=== PATIENT | female | born 1995 | race Caucasian/White ===

== ENCOUNTER 2016-12-05 08:34 | Day surgery (SDC) | payer BC ==
[2016-12-02 18:08] LABS: BASOPHILS 1.4 %; BASOPHILS ABSOLUTE 0.09 10/3/uL (0.0-0.16); EOSINOPHILS 2.3 %; EOSINOPHILS ABSOLUTE 0.15 10/3/uL (0.0-0.53); HEMATOCRIT 44.2 % (36.0-48.0); HEMOGLOBIN 14.3 g/dL (12.0-16.0); IMMATURE GRANULOCYTES 0.2 %; IMMATURE GRANULOCYTES ABSOLUTE 0.01 10/3/uL (0.0-0.11); LYMPHOCYTES 39.3 %; LYMPHOCYTES ABSOLUTE 2.58 10/3/uL (0.67-4.30); MEAN CORPUS HGB CONC 32.4 g/dL (32.0-36.0); MEAN CORPUSCULAR HEMOGLOB 29.8 pg (26.0-34.0); MEAN CORPUSCULAR VOLUME 92.1 fL (80-100); MEAN PLATELET VOLUME 12.2 fL (9.2-13.0); MONOCYTES ABSOLUTE 0.72 10/3/uL (0.21-1.20); NEUTROPHILS 45.8 %; NEUTROPHILS ABSOLUTE 3.02 10/3/uL (2.02-8.40); PLATELET COUNT 264 10/3/uL (150-400); RBC DISTRIBUTION WIDTH 13.9 % (12.0-16.0); WHITE BLOOD CELLS 6.6 10/3/uL (4.5-10.5)
[2016-12-02 18:10] LABS: A/G RATIO 1.4 (0.7-1.9); ALBUMIN 4.2 G/DL (3.5-5.0); ALKALINE PHOSPHATASE 60 U/L (45-117); BUN (BLOOD UREA NITROGEN) 12 MG/DL (6-23); CHLORIDE, SERUM 110 MMOL/L (96-112); CO2 (CARBON DIOXIDE) 25 MMOL/L (24-34); CREATININE 0.72 MG/DL (0.55-1.02); GFR AFRICAN AMERICAN 139 ML/MIN (>=60); GFR NON AFRICAN AMERICAN 120 ML/MIN (>=60); GLOBULIN 2.9 G/DL (2.5-4.1); GLUCOSE, SERUM 92 MG/DL (60-99); MANUAL DIFF NO %; POTASSIUM, SERUM 4.3 MMOL/L (3.5-5.3); SGOT(AST) 8 U/L (5-40); SGPT(ALT) 16 U/L (5-65); SODIUM, SERUM 143 MMOL/L (135-148); TOTAL BILIRUBIN 0.9 MG/DL (0-1.2); TOTAL PROTEIN 7.1 G/DL (6.0-8.5)
[2016-12-02 18:26] LABS: INTERNATIONAL NORMAL RATI 1.1 UNITS (-); PROTIME (NOT ORD) 14.3 SEC (12.0-14.5)
[2016-12-02 18:27] LABS: PARTIAL THROMBO TIME 32.2 SEC (22.5-37.2)
--- NOTE | ~2016-12-05 | OP ---
Record Of Operation [facility] [address] [place]. [address] NAME: MORA NO : 95 STATUS : [facility]#: [id number] AGE: 21 ADM/REG DATE : 12/05/16 MR#: [id number] REPORT SERV DATE: 12/05/16 DICTATED BY: MARYBETH UREÑA III DATE: 12/05/16 REPORT STATUS : Draft TRANSCRIBED BY: MODL DATE: 12/05/16 DATE OF PROCEDURE: 12/05/2016 PREOPERATIVE DIAGNOSIS: Symptomatic cholelithiasis, cholecystitis. POSTOPERATIVE DIAGNOSIS: Symptomatic cholelithiasis, cholecystitis. PATHOLOGY: Multiple cholesterol stones filling the entire lumen of the gallbladder, with normal intraoperative cholangiogram, normal grossly appearing liver, with a 3 mm cystic duct, and the common duct noted to be 7-8 mm external diameter. The patient's uterus was slightly hyperemic, and her tubes and ovaries were unremarkable. She had a normal appearing appendix that was fairly large, but clearly nonacute. PROCEDURE IN DETAIL: The patient had a laparoscopic cholecystectomy with intraoperative cholangiography followed by a right costal margin costal block using 30 mL of 0.5% Marcaine with epinephrine to block the sixth and seventh intercostal nerves for postop pain supplementation. SURGEONS: Marybeth Ureña M.D. VANSTONE MACHINE OPERATOR: Andreina Ureña RN, [facility]. SPECIMEN REMOVED: The gallbladder with stones and the node of Calot which was removed EN bloc. ESTIMATED BLOOD LOSS: 5 mL. COMPLICATIONS: There were no complications. PROCEDURE IN DETAIL: Time-out was called in full agreement of all personnel involved at the patient's procedure. Allergies and medications were in order. With no distention, the procedure was proceeded. The patient was prepped and draped in routine fashion. After adequate general anesthesia, the area of the abdomen approached through a small infraumbilical transverse incision beneath a fairly splayed out umbilicus which had been stretched presumably due to child carrying. The open trocar-placement technique was utilized grasping the peritoneal cavity, and stretching it and placing a 5 x 12 mm balloon port in the peritoneal cavity under direct visualization. The balloon was inflated, and the abdominal cavity insufflated to 15 mmHg pressure with carbon dioxide gas. The abdomen was then inspected and an 11 mm trocar placed through the falciform ligament under video observation. One 5 mm trocar was placed in the right costal margin at the mid axillary line level also under video observation. Internal exam was performed showing findings as above of normal liver, normal stomach which Record Of Operation [facility] [address] [facility] [place]. [address] NAME: MORA NO : 95 STATUS : [facility] PAT#: [id number] AGE: 21 ADM/REG DATE : 12/05/16 MR#: [id number] REPORT SERV DATE: 12/05/16 DICTATED BY: MARYBETH UREÑA III DATE: 12/05/16 REPORT STATUS : Draft TRANSCRIBED BY: MODL DATE: 12/05/16 was gaseously distended requiring an OG tube to decompress it. The colon was unremarkable. Small bowel showed no gross abnormalities. The appendix was noted to be nonacute, although fairly large in size, length, and diameter. The cecum was unremarkable. Tubes, ovaries, and uterus were inspected, and the uterus was somewhat hyperemic with some scarring on it. Otherwise, no pathologic significance was seen. The gallbladder was then grasped and retracted superiorly and anteriorly, and dissection carried out removing adhesions from the infundibulum of the gallbladder and the duodenum with sharp dissection avoiding cautery in this area. The gallbladder was pulled up and the cystic duct identified and skeletonized, and the common duct noted to be pulled up as well visualizing the junction of the cystic duct and common duct. The cystic duct was skeletonized and controlled on the infundibular side with titanium clips. Percutaneously introduced Arrow catheter was then placed through a small incision in the side of the cystic duct and threaded in at about 1 cm and held in place with a partially collapsed titanium clip. Real-time C-arm intraoperative cholangiography was then obtained using 50% Hypaque or Omnipaque solution with good visualization of the common duct with good flow into the duodenum and good filling of hepatic radicals without impedance to flow or filling defects. The cystic duct stump was adequate length for slippage. After this was done, the partially collapsed clip and Arrow catheter were removed, and three titanium clips were placed on the cystic duct stump prior to its complete transection. Careful dissection in the area of the cystic artery was then carried out and two branches of the cystic artery identified clearly coming up on to the gallbladder, and these were skeletonized and controlled with titanium clips. Cautery current was then used for retrograde dissection of the gallbladder with minimal bleeding encountered. The retrograde dissection was carried out in this very distended-elongated gallbladder completing the dissection and inspecting the bed with good hemostatic control completed. After this was done, the gallbladder was brought through the infraumbilical incision and brought up through the incision without difficulty. Carefully bring up through this incision with no leakage or contamination. The gallbladder was opened on the back table showing it to be full of cholesterol stones varying in size from 1 mm to 1 cm. The gallbladder fossa was irrigated and reinspected and then, upon establishment of good hemostatic control, the trocars were all removed under video observation. Two larger trocars were closed at the fascial level with [id number] sutures of 0 Vicryl. The subcutaneous tissues were all irrigated and closed with interrupted 3-0 Vicryl, and the skin closed with Dermabond. Band-Aids were applied. The right costal margin block was then performed as described earlier using 30 mL of 0.5% Marcaine with epinephrine to block the sixth and seventh intercostal nerves. The procedure was then concluded and the patient sent to the post anesthesia care unit in stable condition. Record Of Operation [facility] [address] [place]. [address] NAME: MORA NO : 95 STATUS : [facility]#: [id number] AGE: 21 ADM/REG DATE : 12/05/16 MR#: [id number] REPORT SERV DATE: 12/05/16 DICTATED BY: MARYBETH UREÑA III DATE: 12/05/16 REPORT STATUS : Draft TRANSCRIBED BY: HERMINIO DATE: 12/05/16 REJI/HERMINIO Marybeth Ureña III, M.D. / [id number] CC: Salma Sahni III, M.D.
--- NOTE | ~2016-12-05 | HP ---
History And Physical [address] [place]. [address] NAME: MORA NO : 95 STATUS : [facility] PAT#: [id number] AGE: 21 ADM/REG DATE : MR#: [id number] REPORT SERV DATE: 11/30/16 DICTATED BY: MARYBETH UREÑA III DATE: 11/30/16 REPORT STATUS : Draft TRANSCRIBED BY: MODLoni DATE: 11/30/16 DATE OF ADMISSION: 12/05/2016 DATE OF ADMISSION AND SURGERY: 12/05/2016, 10:00 a.m. HISTORY OF PRESENT ILLNESS: The patient is a 21-year-old, female, with known gallbladder stones since 2014, but recently with more nausea, vomiting, and right upper quadrant abdominal pain associated with any food intake. She has had a couple of pounds of weight loss. She is 5 months from her first child and had some difficulties even losing weight during the latter trimester of her . She had workup to Dr. Anderson's office via Desirae Silva PA-C. The patient's workup was consistent with an ultrasound that was with a gallbladder filled with stones and normal-sized common bile duct at 0.5 cm. There was no gallbladder wall thickening or pericholecystic fluid. There were no focal liver lesions noted. The patient also underwent a HIDA scan on the same day that showed a 0 percentage ejection fraction with nonvisualization of the gallbladder at 0400 hours consistent with cystic duct obstruction. PAST MEDICAL HISTORY: Completely negative. She has had no previous hospitalizations other than for her childbirth, and she is only on ranitidine as her only medication at this time. ALLERGIES: SHE HAS NO KNOWN LATEX ALLERGIES. SOCIAL HISTORY: She is single. Never uses alcohol, tobacco, or drugs. 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 FAMILY HISTORY: Positive for liver failure in her father. Mother is positive for hepatitis C. The patient's child is a 5-month-old boy in good condition. REVIEW OF SYSTEMS: Consistent with mostly symptoms related to present illness with nausea, vomiting, some heartburn. Apparently, she had a colonoscopy in 2012, to evaluate some anemia that she had. She has had some chronic anemia which was said to be iron deficiency. She is presently taking control pills since her childbirth. Her last normal menstrual period was 11/13/2016. Her last Pap smear was 08/11/2016. Remainder of the review of systems is negative. PHYSICAL EXAMINATION: GENERAL: The patient is a thin, white female. VITAL SIGNS: Blood pressure 110/70, weight 108 pounds, respirations were 18, heart rate 64, temperature 98.4. HEENT: Exam is unremarkable. Nonicteric sclerae. Her thyroid was normal. Her hearing was adequate. External ears and nose were normal. CHEST: Clear to auscultation from anterior to posterior with good inspiratory effort. HEART: Revealed a regular rate and rhythm without thrill, bruit, or murmur, with a heart rate of 64. ABDOMEN: Showed moderate direct tenderness in the right upper quadrant with normal liver History And Physical [address] [address] NAME: MORA NO : 95 STATUS : [facility] PAT#: [id number] AGE: 21 ADM/REG DATE : MR#: [id number] REPORT SERV DATE: 11/30/16 DICTATED BY: MARYBETH UREÑA III DATE: 11/30/16 REPORT STATUS : Draft TRANSCRIBED BY: HERMINIO DATE: 11/30/16 and spleen on percussion. Her umbilicus was somewhat enlarged and splayed out presumably due to the stretch from her , but no real hernia was palpable. NECK AND GROIN: Demonstrated no lymphadenopathy. SKIN: Unremarkable. NEURO: Gait and station were normal. Cranial nerves were intact. She is oriented x3 with a slightly flattened affect. Judgment and memory were within normal limits. The office notes from Desirae Silva were reviewed as well as the HIDA and ultrasound studies. IMPRESSION: The patient has cholecystitis with cholelithiasis and cystic duct obstruction, very symptomatic. Iron-deficiency anemia, likely chronic and worsened by a . Clearly, she should be on some type of iron replacement once her gallbladder has been removed. RECOMMENDATION: Would be for her to have a laparoscopic cholecystectomy under general anesthesia with outpatient procedure anticipated. Risks of surgery were discussed with the patient and her mother including bleeding, infection, injury to the bile duct, injury to the bowel, bile leakage and conversion to open surgery were discussed with them. Hernia development, as well as chronic diarrhea, or bile reflux gastritis complications late were also discussed. General anesthetic risks were also mentioned. The patient accepts risks for potential benefit and will be scheduled for laparoscopic cholecystectomy on 12/05/2016. REJI/HERMINIO Marybeth Ureña III, M.D. / [id number] CC: Marybeth Ureña III, M.D.
[~2016-12-05 08:34] MED LIST: PRILOSEC40 MG PO; [UNRECOGNIZED DRUG - OTHER] PO
== END 2016-12-05 17:05 | disposition home or self-care (01) ==
LOC: SDC 08:34
PROVIDERS: Surgery
PROC: BF101ZZ Fluoroscopy of Bile Ducts using Low Osmolar Contrast (ICD-10-PCS; 2016-12-05)
PROC: 0FT44ZZ Resection of Gallbladder, Percutaneous Endoscopic Approach (ICD-10-PCS; principal; 2016-12-05 09:45)
DX: K80.10 Calculus of gallbladder with chronic cholecystitis without obstruction (principal); K21.9 Gastro-esophageal reflux disease without esophagitis; G47.419 Narcolepsy without cataplexy; Z79.899 Other long term (current) drug therapy; Z98.890 Other specified postprocedural states
CPT/HCPCS: 36415; 74300; 80053; 82150; 83690; 84703; 85025; 85610; 85730; 88304; A9270-GY; J0690; J1170; J1885; J2250; J2270; J2405; J2710; J3010; Q9967